=== PATIENT | male | born 1995 | race Caucasian/White ===

== ENCOUNTER 2021-10-27 13:09 | Emergency (ER) | payer BC, SELFPAY ==
[2021-10-27 13:28] VITALS: BP 127/65; PULSE 82; RESP 18; TEMP 37; O2SAT 98; BMI 31.5
--- NOTE | 2021-10-27 14:33 | ED.GENADULT ---
HPI - General Adult General Time Seen by Provider: 14:25 Date Seen: 10/27/21 Chief complaint: Extremity Pain/Injury, Lower Stated complaint: Left leg pain Time Seen by Provider: 10/27/21 14:20 Source: patient Mode of arrival: ambulatory Limitations: no limitations History of Present Illness HPI narrative: This 26-year-old male comes in reporting pain in his left wrist and on the lateral aspect of his left upper leg. 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 He does not report any injury event. Prior to this he has been in good health. He has normal range of motion of his extremities. He does not report any altered sensation otherwise. Location: left, upper extremity and lower extremity Radiation: non-radiation Pain Consistency: intermittent Associated symptoms: denies other symptoms Treatments prior to arrival: none Related Data Previous Rx's Medication Instructions Recorded ketorolac 10 mg tablet 10 mg PO TID 5 Days #15 tab 10/27/21 methylprednisolone 4 mg tablets in 4 mg PO DAILY #21 ea 10/27/21 a dose pack Allergies Allergy/AdvReac Type Severity Reaction Status Date / Time No Known Drug Allergies Allergy Verified 10/27/21 13:27 Review of Systems Status of ROS: Reports: 10 or more systems reviewed and unremarkable except as noted in History and below Const: Denies: fever Eyes: Denies: change in vision ENMT: Denies: throat pain Cardio: Denies: chest pain or shortness of breath with exertion Resp: Denies: shortness of breath GI: Denies: abdominal pain : Denies: painful urination Musculo: Reports: extremity pain; Denies: back pain, extremity swelling or limited range of motion Integ/Breast: Denies: rash Neuro: Denies: headache Psych: Denies: anxiety Endo: Denies: excessive urination or excessive thirst Henry/Lymph: Denies: easy bruising or easy bleeding PFSH PFSH Medical History Asthma Nasal septal deformity Obstructive tonsils and adenoids Social History Smoking Status: Current every day smoker What tobacco products do you use: cigars Do you use any of these nicotine containing products: None Second hand tobacco smoke exposure: Yes How often do you have a drink containing alcohol: never AUDIT-C Alcohol total score: 0 Non-prescribed substance use: marijuana (any form) Exam Const: Vital Signs, click to edit/add: Vital Signs - 24 hr 10/27/21 13:28 Temperature 98.6 F Pulse Rate [Right Pulse Oximeter] 82 Respiratory Rate 18 Blood Pressure [Ri ght Upper Arm] 127/65 Pulse Oximetry 98 Common normals: no apparent distress and oriented x3 General appearance: cooperative and comfortable Orientation/consciousness: Yes awake, Yes oriented to person, Yes oriented to place and Yes oriented to time HENMT: Common normals: normocephalic Head and scalp: normal to inspection and normocephalic Face and sinus: normal facial exam Eye: Common normals: PERRL General eye: normal appearance of both eyes Pupil: PERRL Neck & C-Spine: Common normals: full ROM Chest: Common normals: inspection of chest normal Resp: Common normals: normal respiratory effort Cardio: Common normals: regular rate and regular rhythm Rate: regular rate Rhythm: regular rhythm GI: Common normals: Normal to inspection, nondistended, normoactive bowel sounds present : Other: Deferred. Back & Pelvis: Common normals: straight leg raise negative bilaterally Thoracic spine/upper back: normal to inspection Lumbar spine/lower back: normal to inspection Extremity: Common normals: normal to inspection and full ROM Left upper extremity: wrist (Diffuse tenderness in the left wrist and hand. No sign of deformity.) Left wrist: inspection and ROM Left lower extremity: upper leg Other: Tenderness on the lateral aspect of the left leg in the location of the iliotibial band. There is no altered sensation. Neuro: Common normals: oriented x3 Sensorium/orientation: awake, oriented to person, oriented to place and oriented to time Psych: Appearance: grossly normal Skin: Common normals: no rashes or lesions noted General skin exam: no rashes or lesions noted Course Vital Signs Vital signs: Initial Vital Signs Temperature 98.6 F 10/27/21 13:28 Temperature Source Temporal Artery Scan 10/27/21 13:28 Pulse Rate 82 10/27/21 13:28 Respiratory Rate 18 06/30/22 13:28 Blood Pressure 127/65 06/30/22 13:28 Blood Pressure Mean 85 10/27/21 13:28 Blood Pressure Position Sitting 10/27/21 13:28 Pulse Oximetry 98 10/27/21 13:28 Oxygen Delivery Method 10/27/21 13:28 Vital Signs Temperature 98.6 F 10/27/21 13:28 Pulse Rate 82 10/27/21 13:28 Respiratory Rate 18 10/27/21 13:28 Blood Pressure 127/65 10/27/21 13:28 Pulse Oximetry 98 10/27/21 13:28 Temperature 98.6 F 10/27/21 13:28 Pulse Rate 82 10/27/21 13:28 Respiratory Rate 18 10/27/21 13:28 Blood Pressure 127/65 10/27/21 13:28 Pulse Oximetry 98 10/27/21 13:28 Medical Decision Making MDM Narrative Medical decision making narrative: This patient comes in with pain in the left wrist and left lateral upper leg as described above. He does not report any injury event but has had some significant strenuous activity at his place of work. He does not have any altered sensation in his left lateral leg suggestive of paresthetica meralgia. More likely this involves the iliotibial band and or musculature of the lateral leg. Similarly his left wrist shows no sign of deformity and has normal range of motion. Phalen's test and Tinel's sign are both negative. I discussed imaging options with the patient but indicated that these are not typically done when there is no significant enough mechanism of injury. Discharge Plan Discharge Clinical Impression: Iliotibial band syndrome, Left wrist pain Patient Disposition: Home, Self-Care Condition: Unchanged Instructions: Wrist Injury (ED), Iliotibial Band Syndrome (ED) Activity Level: Activity as Tolerated Discharge Diet: Regular Prescriptions: New ketorolac 10 mg tablet 10 mg PO TID 5 Days Qty: 15 0RF methylprednisolone 4 mg tablets,dose pack 4 mg PO DAILY Qty: 21 0RF Follow Up/Referrals: Tk Calabrese MD [Primary Care Provider] - Stand Alone Forms: [employer] Info Instructions
--- NOTE | 2021-10-27 18:01 | ED.NURSE ---
In patient chart to confirm medrol dosepak instructions per pharmacy request.
== END 2021-10-27 15:30 | disposition home or self-care (01) ==
PROVIDERS: Emergency Provider Emergency Medicine Emergency Medical Services; PCP Family Medicine
DX: M76.32 Iliotibial band syndrome, left leg (principal); M25.532 Pain in left wrist
CPT/HCPCS: 99282; 99284